=== PATIENT | female | born 1980 | race Caucasian/White ===

== ENCOUNTER 2023-07-08 13:05 | Emergency (ER) | payer MEDICARE, MEDICAID ==
[~2023-07-08] VITALS: Ht 152.4 cm; Wt 51.9 kg
[2023-07-08] MEDS ORDERED: CLIN-97 PO (13:36)
[2023-07-08 14:50] VITALS: TEMP 98.3
== END 2023-07-08 14:55 | disposition home or self-care (01) ==
LOC: ER 13:06
DX: K08.89 Other specified disorders of teeth and supporting structures (principal); Z79.2 Long term (current) use of antibiotics
CPT/HCPCS: 99283